=== PATIENT | male | born 1980 | race Caucasian/White ===

== ENCOUNTER 2020-05-14 13:36 | Emergency (ER) | payer OTHER, SELFPAY ==
[2020-05-14 13:43] VITALS: BP 123/56; PULSE 50; RESP 18; TEMP 36.5; O2SAT 95; BMI 28.1
--- NOTE | 2020-05-14 14:21 | ED_ITS ---
HPI - Back Pain/Injury General Chief Complaint: Back Pain/Injury Stated Complaint: Lower Back Pain Time Seen by Provider: 05/14/20 14:00 Source: patient Limitations: no limitations History of Present Illness HPI Narrative: Patient is a 39-year-old male who presents with a right lower back pain. 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 He said he works out regularly he worked out yesterday he had no issue he did not even work is legs. This morning he was sitting in a chair putting on his tennis shoes getting ready to go on a run with his back suddenly ceased. He has episodes like this often but typically only last about a day and a half and go away with Tylenol and Flexeril. He says today he is unable to stand because standing causes severe pain. He is currently laying on his stomach which at this point he is comfortable he denies any numbness tingling or weakness. MD Complaint: back pain Onset (ago): hour(s) Duration: constant Similar Symptoms Previously: Yes Location: lumbar spine (Right lateral) Severity: moderate Quality: sharp Related Data Previous Rx's Medication Instructions Recorded diazepam [Valium] 5 mg PO BID PRN #10 tab 05/14/20 diazepam [Valium] 5 mg PO BID PRN #10 tab 05/14/20 hydrocodone-acetaminophen [[place]] 1 tab PO Q6H #10 tab 05/14/20 hydrocodone-acetaminophen [[place]] 1 tab PO Q6H #10 tab 05/14/20 Allergies Allergy/AdvReac Type Severity Reaction Status Date / Time No Known Drug Allergies Allergy Verified 05/14/20 13:43 Review of Systems Review of Systems Narrative: GENERAL: Denies chills, fatigue, malaise, fever, sweats, travel HEENT: Denies sinus pain, ear pain, sore throat, difficulty swallowing, neck [place] n RESPIRATORY: Denies dyspnea, cough, wheezing, hemoptysis, sputum. CARDIOVASCULAR: Denies chest pain, palpitations, orthopnea, edema GASTROINTESTINAL: Denies nausea, vomiting, abdominal pain, diarrhea, constipation, melena. : Denies dysuria, frequency, incontinence, hematuria, urinary retention, flank pain. MUSCULOSKELETAL: See HPI SKIN: No rash, no erythema, no pruritus NEUROLOGIC: Denies weakness, dizziness, headache, numbness, change in speech, confusion PSYCHIATRIC: No concerning psychosocial issues. 12 point review of systems is negative except for those stated above and HPI Patient History Medical History Seminoma (Acute) Social History Smoking Status: Never smoker Smoking Status: Never smoker alcohol intake frequency: 0-2 drinks per day Substance Use Type: does not use Exam Initial Vital Signs Initial Vital Signs: Vital Signs Temperature 97.7 F 05/14/20 13:43 Pulse Rate 50 L 05/14/20 13:43 Respiratory Rate 18 05/14/20 13:43 Blood Pressure 123/56 L 05/14/20 13:43 Pulse Oximetry 95 05/14/20 13:43 GENERAL: Alert male appears comfortable lying on stomach HEENT: Head atraumatic,EOMI, pupils reactive, face symmetric CARDIOVASCULAR: Regular rate and rhythm without murmurs, rubs or gallops. RESPIRATORY: Breath sounds equal bilaterally, no wheezes rales or rhonchi. ABDOMEN: Soft, nontender. Normoactive bowel sounds all 4 quadrants. No guarding or rebound. BACK: No vertebral tenderness no step-off he is tender in right lateral lumbar region. No significant muscle spasm felt he is able to lift both legs up while lying on his stomach but it does cause pain EXTREMITIES: Normal range of motion, no clubbing or edema. Neurovascularly intact NEUROLOGICAL: Alert and oriented x4.Normal gait and speech. Cranial nerves II through XII grossly intact. SKIN: Warm, dry, no laceration, no petechiae, no rashes or lesions. Course Orders Ordered: ED Orders 05/14/20 15:22 CT abdomen pelvis w con Stat 05/14/20 15:38 Basic Metabolic Panel Stat Complete Blood Count AUTO DIFF Stat Discontinued Medications Ketorolac Tromethamine (Toradol) 30 mg IM NOW ONE Stop: 05/14/20 14:22 Last Admin: 05/14/20 14:32 Dose: 30 mg Documented by: MMCFARL Morphine Sulfate (Morphine) 4 mg IV NOW ONE Stop: 05/14/20 16:03 Last Admin: 05/14/20 16:07 Dose: 4 mg Documented by: MMCFARL Ondansetron HCl (Zofran) 4 mg IV NOW ONE Stop: 05/14/20 16:03 Last Admin: 05/14/20 16:07 Dose: 4 mg Documented by: MMCFARL Vital Signs Vital signs: Vital Signs - 8 hr 05/14/20 13:43 05/14/20 17:02 Temperature 97.7 F Pulse Rate 50 L 97 H Respiratory Rate 18 Blood Pressure 123/56 L 107/63 Pulse Oximetry 95 52 L MDM - Back Pain/Injury Lab Data Attestation: I reviewed the patient's lab results. Result diagrams: 05/14/20 15:38 05/14/20 15:38 Labs: Lab Results 05/14/20 05/14/20 Range/Units 15:38 15:38 WBC 7.0 (4.5-11.0) X10^3/uL RBC 5.03 (4.5-5.9) X10^6/uL Hgb 15.7 (13.5-17.5) g/dL Hct 44.0 (41-53) % MCV 87.4 (80-100) fL MCH 31.2 (26-34) PG MCHC 35.7 (30-36) % RDW 12.8 (11.6-14.8) % Plt Count 204 (150-400) X10^3/uL Neut % (Auto) 68.1 (50-75) % Lymph % (Auto) 24.1 L (25-40) % [place] % (Auto) 6.3 (3-14) % Eos % (Auto) 1.1 L (2-4) % Baso % (Auto) 0.4 (0-2) % Neut # (Auto) 4800 (5831-8460) /uL Lymph # (Auto) 1700 (5025-1445) /uL [place] # (Auto) 400 (0-900) /uL Eos # (Auto) 100 (0-450) /uL Baso # (Auto) 0 (0-100) /uL Sodium 138 (137-145) mmol/L Potassium 4.4 (3.4-5.1) mmol/L Chloride 103 (98-107) mmol/L Carbon Dioxide 30 (22-32) mmol/L BUN 19 (9-20) mg/dL Creatinine 0.84 (0.66-1.25) mg/dL Estimated GFR > 60.0 (>60) mL/min BUN/Creatinine Ratio 22.6 H (6-22) Glucose 110 H (70-100) mg/dL Calcium 9.7 (8.4-10.2) mg/dL Imaging Data CT scan - abdomen/pelvis: Radiologist's Impression: PROCEDURE: CT ABDOMEN PELVIS W CON INDICATIONS: right lumbar pain-hx seminoma TECHNIQUE: After the administration of oral and intravenous contrast, 5 mm thick sections acquired from the diaphragms to the symphysis. 5 mm thick coronal and sagittal reformats were performed. For radiation dose reduction, the following was used: automated exposure control, adjustment of mA and/or kV according to patient size. COMPARISON: None. FINDINGS: Image quality: Diagnostic. ABDOMEN: Lung bases: Lung bases are clear. Heart size is normal. Solid organs: The liver is normal in size. Numerous scattered subcentimeter foci of low attenuation are identified involving the liver, which are too small to adequately characterize and may represent punctate cysts. The portal vein is patent. In the gallbladder is not enlarged or inflamed. There is no intrahepatic or extrahepatic biliary dilatation. The pancreas and spleen are within normal limits. The adrenals and kidneys are also within normal limits. There is no hydronephrosis. Peritoneum and bowel: The stomach is unremarkable. The small bowel loops are nondilated. However, a few fluid-filled nondilated small bowel loops are present. The appendix is not definitively identified. No inflammation within the right lower quadrant is evident. There is a large amount of stool identified throughout the colon. There is no free fluid, loculated fluid collection, or free air. Nodes and vessels and retroperitoneum: No retroperitoneal or mesenteric adenopathy. Aorta and inferior vena cava are normal in caliber. Postoperative changes within the left retroperitoneum are identified. Bones: No acute fracture or suspicious osseous lesion is identified. PELVIS: Genitourinary: Bladder wall thickness is normal. The prostate is not enlarged. Postsurgical changes related to a left orchiectomy are noted. Miscellaneous: No inguinal hernias or adenopathy. No free fluid or loculated fluid collection is evident. There is no free air Bones: No suspicious bony lesions. No acute pelvic fractures are evident. IMPRESSION: 1. No definite acute abnormality within the abdomen or pelvis. 2. Postoperative changes related to a left orchiectomy and retroperitoneal lymph node dissection. 3. No lymphadenopathy. 4. Probable constipation. No bowel obstruction. 5. Punctate foci of decreased density within the liver are too small to adequately characterize, but may represent cysts. Dictated by: Oleksandr Eller M.D. on 05/14/2020 at 15:40 Approved by: Oleksandr Eller M.D. on 05/14/2020 at 15:43 MDM Narrative Medical decision making narrative: Patient is still having pain after Toradol though he is able to flip over onto his back. He is unable to stand. He has not had imaging since his cancer. He states that his cancer presented similarly to this with severe right lower lumbar pain Patient's blood work and CT are negative. Pain is much better after morphine. This is likely related to musculoskeletal and muscle spasm which started after bending over while tying his shoes. He has no neurologic deficits numbness tingling weakness specially in the saddle area no changes in bowel or bladder habits. Discharge Plan Departure Patient Disposition: Home Clinical Impression: Strain of lumbar region Qualifiers: Encounter type: initial encounter Qualified Code(s): S39.012A - Strain of muscle, fascia and tendon of lower back, initial encounter Discharge Date/Time: 05/14/20 17:36 Instructions: DI for Back Strain or Sprain Activity Restrictions/Additional Instructions: *You have been diagnosed with back pain *What to do: The CT scan and blood work are negative this seems to be musculoskeletal, recommend light stretching and light activity such as walking some movement will help. Peer bed rest will make your symptoms worse *Continue to take medications as directed-->Sent to [facility] in [place] (yes i changed it to [facility]) Ibuprofen 800 mg every 8 hours if needed Valium 5 mg every 12 hours if needed for muscle spasm [place] 1 tablet every 6 hours only if needed for severe pain *Follow up with your primary care provider in 2-3 days *Return to ER if you should have increasing back pain weakness bladder or bowel changes or any new, worsening or concerning symptoms CONTROLLED SUBSTANCE DISCHARGE (Narcotoic/benzodiazepine/Flexeril/Phenergan) 1. You have been prescribed narcotic medications, it does have acetaminophen/Tylenol/paracetamol in it so do not take extra Tylenol or Tylenol containing products TRAMADOL DOES NOT CONTAIN TYLENOL 2. Please understand that we cannot provide further refills of narcotics, benzodiazepines or controlled substances through the ED and her pain management will need to be through your provider. 3. While on these medications you cannot drive or operate heavy machinery. 4. You cannot sign legal documents or perform any duties such as this. 5. As long as you're taking opiate pain medications he should also be taking a stool softener such as Colace, Dulcolax, MiraLAX or prune juice, to help avoid constipation. Prescriptions: New hydrocodone-acetaminophen [[place]] 5-325 mg tablet 1 tab PO Q6H Qty: 10 RF: 0 diazepam [Valium] 5 mg tablet 5 mg PO BID PRN (Reason: muscle spasm) Qty: 10 RF: 0 hydrocodone-acetaminophen [[place]] 5-325 mg tablet 1 tab PO Q6H Qty: 10 RF: 0 diazepam [Valium] 5 mg tablet 5 mg PO BID PRN (Reason: muscle spasm) Qty: 10 RF: 0 Referrals: Dylan Randhawa MD [Primary Care Provider] -
[2020-05-14] MEDS: KETOROLAC 60 MG/2 ML VIAL 30 MG IM (14:32)
--- NOTE | 2020-05-14 15:22 | DI.CT.S_ITS ---
PROCEDURE: CT ABDOMEN PELVIS W CON INDICATIONS: right lumbar pain-hx seminoma TECHNIQUE: After the administration of oral and intravenous contrast, 5 mm thick sections acquired from the diaphragms to the symphysis. 5 mm thick coronal and sagittal reformats were performed. For radiation dose reduction, the following was used: automated exposure control, adjustment of mA and/or kV according to patient size. COMPARISON: None. FINDINGS: Image quality: Diagnostic. ABDOMEN: Lung bases: Lung bases are clear. Heart size is normal. Solid organs: The liver is normal in size. Numerous scattered subcentimeter foci of low attenuation are identified involving the liver, which are too small to adequately characterize and may represent punctate cysts. The portal vein is patent. In the gallbladder is not enlarged or inflamed. There is no intrahepatic or extrahepatic biliary dilatation. The pancreas and spleen are within normal limits. The adrenals and kidneys are also within normal limits. There is no hydronephrosis. Peritoneum and bowel: The stomach is unremarkable. The small bowel loops are nondilated. However, a few fluid-filled nondilated small bowel loops are present. The appendix is not definitively identified. No inflammation within the right lower quadrant is evident. There is a large amount of stool identified throughout the colon. There is no free fluid, loculated fluid collection, or free air. Nodes and vessels and retroperitoneum: No retroperitoneal or mesenteric adenopathy. Aorta and inferior vena cava are normal in caliber. Postoperative changes within the left retroperitoneum are identified. Bones: No acute fracture or suspicious osseous lesion is identified. PELVIS: Genitourinary: Bladder wall thickness is normal. The prostate is not enlarged. Postsurgical changes related to a left orchiectomy are noted. Miscellaneous: No inguinal hernias or adenopathy. No free fluid or loculated fluid collection is evident. There is no free air Bones: No suspicious bony lesions. No acute pelvic fractures are evident. IMPRESSION: 1. No definite acute abnormality within the abdomen or pelvis. 2. Postoperative changes related to a left orchiectomy and retroperitoneal lymph node dissection. 3. No lymphadenopathy. 4. Probable constipation. No bowel obstruction. 5. Punctate foci of decreased density within the liver are too small to adequately characterize, but may represent cysts. Dictated by: Oleksandr Eller M.D. on 05/14/2020 at 15:40 Approved by: Oleksandr Eller M.D. on 05/14/2020 at 15:43
[2020-05-14 15:52] LABS: Add Manual Diff / Slide Review NO; Basophils Absolute Auto 0 /uL (0-100); Basophils Percent Auto 0.4 % (0-2); Eosinophils Absolute Auto 100 /uL (0-450); Eosinophils Percent Auto 1.1 % (2-4); Hemoglobin 15.7 g/dL (13.5-17.5); Lymphocytes Absolute Auto 1700 /uL (1100-4500); Lymphocytes Percent Auto 24.1 % (25-40); Mean Corpuscular HGB Conc 35.7 % (30-36); Mean Corpuscular Hemoglobin 31.2 PG (26-34); Mean Corpuscular Volume 87.4 fL (80-100); Monocytes Absolute Auto 400 /uL (0-900); Monocytes Percent Auto 6.3 % (3-14); Neutrophils Absolute Auto 4800 /uL (1500-7000); Neutrophils Percent Auto 68.1 % (50-75); Platelet Count 204 X10^3/uL (150-400); Red Blood Cell Count 5.03 X10^6/uL (4.5-5.9); Red Cell Distribution Width 12.8 % (11.6-14.8)
[2020-05-14 16:01] LABS: BUN Creatinine Ratio 22.6 (6-22); Blood Urea Nitrogen 19 mg/dL (9-20); Calcium 9.7 mg/dL (8.4-10.2); Carbon Dioxide 30 mmol/L (22-32); Chloride 103 mmol/L (98-107); Estimated Glomerular Filt Rate > 60.0 mL/min (>60); Glucose 110 mg/dL (70-100); HEMOLYSIS < 15 (0-50); Potassium 4.4 mmol/L (3.4-5.1); Sodium 138 mmol/L (137-145)
[2020-05-14] MEDS: MORPHINE 4 MG/ML INJ IV (16:07)
[2020-05-14] MEDS: ONDANSETRON 4 MG/2 ML INJ IV (16:07)
[2020-05-14 17:02] VITALS: BP 107/63; PULSE 97; O2SAT 52
== END 2020-05-14 17:36 | disposition home or self-care (01) ==
PROVIDERS: Emergency Provider Emergency Medicine
DX: S39.012A Strain of muscle, fascia and tendon of lower back, initial encounter (principal); Z85.47 Personal history of malignant neoplasm of testis
CPT/HCPCS: 36415; 74177; 80048; 85025; 96372; 96374; 96375; 99284; 99285; J1885; J2270; J2405; Q9967